=== PATIENT | female | born 1935 | race American Indian/Alaskan Native ===

== ENCOUNTER 2017-11-18 14:42 | Emergency (ER) | payer MEDICARE, OTHER ==
[2017-11-18 14:43] VITALS: BMI 27.6
[2017-11-18 15:11] VITALS: TEMP 98.7
[2017-11-18] MEDS ORDERED: Bacitracin 500 Units/gm Oint Foilpak UD TOP STA (15:45)
--- NOTE | 2017-11-18 15:51 | ED PDOC ---
Arrival/HPI - General Chief Complaint: Upper Extremity Problem/Injury Time Seen by Provider: 11/18/17 15:21 Historian: Patient - History of Present Illness Narrative History of Present Illness (Text): you were treated in the ED today for having an accidental fall with injury abrasion to the right wrist area with mild swelling and pain but otherwise without any head injury/neck pain/loss of consciousness/nausea/vomiting/headache /dizziness/difficulty breathing/chest pain/abdomen pain/numbness/tingling/loss of limb function/pain with urination. Time/Duration: Other (2 days ago) Symptom Course: Unchanged Quality: Aching Severity Level: 1 Activities at Onset: Rest Context: Walking Past Medical History - Provider Review Nursing Documentation Reviewed: Yes - Travel History Have you recently traveled outside [place] w/in the past 3 mons?: No - Infectious Disease Hx of Infectious Diseases: None - Cardiac Hx Pacemaker: No - Neurological Hx Paralysis: No - Hematological/Oncological Hx Blood Transfusions: No Hx Blood Transfusion Reaction: No - Musculoskeletal/Rheumatological Hx Musculoskeletal Disorders: No - Gastrointestinal Other/Comment: colonoscopy - Psychiatric Hx Emotional Abuse: No Hx Physical Abuse: No Hx Substance Use: No - Surgical History Hx Coronary Artery Bypass Graft: Yes (x3) Hx Coronary Stent: Yes - Anesthesia Hx Anesthesia: Yes Hx Anesthesia Reactions: Yes (NAUSEA) Hx Malignant Hyperthermia: No - Suicidal Assessment Feels Threatened In Home Enviroment: No Family/Social History - Physician Review Nursing Documentation Reviewed: Yes Family/Social History: No Known Family HX Smoking Status: Never Smoked Hx Alcohol Use: No Hx Substance Use: No Allergies/Home Meds Allergies/Adverse Reactions: Allergies shellfish derived Adverse Reaction (Verified 11/18/17 15:12) RASH Home Medications: Home Meds Medication Instructions Recorded Confirmed Ascorbic Acid [Vitamin C] 250 mg PO DAILY 07/15/14 11/18/17 Aspirin [Leader Aspirin] 81 mg PO DAILY 07/15/14 11/18/17 Ferrous Sulfate 325 mg PO DAILY 07/15/14 11/18/17 Metoprolol Succinate [Metoprolol 100 mg PO QAM 07/15/14 11/18/17 Succinate Xl] Quinapril Hydrochloride [Quinapril 40 mg PO BID 07/15/14 11/18/17 HCl] Simvastatin 40 mg PO HS 07/15/14 11/18/17 Review of Systems - Review of Systems Constitutional: Normal Eyes: Normal ENT: Normal Respiratory: Normal Cardiovascular: Normal Gastrointestinal: Normal Genitourinary Female: Normal Musculoskeletal: Joint Swelling Skin: Other (abrasion) Neurological: Normal Endocrine: Normal Hemo/Lymphatic: Normal Psychiatric: Normal Physical Exam Vital Signs Reviewed: Yes Vital Signs Temp Pulse Resp BP Pulse Ox 11/18/17 15:05 98.7 F 57 L 17 160/58 H 97 Temperature: Afebrile Blood Pressure: Hypertensive Pulse: Regular Respiratory Rate: Normal Appearance: Positive for: Well-Appearing, Non-Toxic, Comfortable Pain Distress: None Mental Status: Positive for: Alert and Oriented X 3 - Systems Exam Head: Present: Atraumatic, Normocephalic Pupils: Present: PERRL Extroacular Muscles: Present: EOMI Conjunctiva: Present: Normal Ears: Present: Normal Mouth: Present: Moist Mucous Membranes Pharnyx: Present: Normal Nose (External): Present: Atraumatic Nose (Internal): Present: Normal Inspection Neck: Present: Normal Range of Motion, Other ( no c-t-l spinal or paraspinal tenderness) Respiratory/Chest: Present: Clear to Auscultation, Good Air Exchange Cardiovascular: Present: Regular Rate and Rhythm Abdomen: No: Tenderness, Distention, Normal Bowel Sounds, Peritoneal Signs, Rebound, Guarding, McBurney's Point Tender, Rovsing's Sign Present, Hernias, Feeding Tubes, Ostomy Tubes, Mass/Organomegaly, Scars, Other Back: Present: Normal Inspection Upper Extremity: Present: Other (no muscle or bony tenderness any other location except for mild right wrist area discomfort in the extensor area of abrasion without fluctuance/crepitus/redness and otherwise good radial pulse/ sensation/cap refill without any snuffbox tenderness) Lower Extremity: Present: Normal Inspection Neurological: Present: GCS=15, CN II-XII Intact, Speech Normal, Motor Func Grossly Intact Skin: Present: Warm, Other (see msk upper) Psychiatric: Present: Alert, Oriented x 3, Normal Insight, Normal Concentration Medical Decision Making ED Course and Treatment: you were treated in the ED today for having an accidental fall with injury abrasion to the right wrist area with mild swelling and pain but otherwise without any head injury/neck pain/loss of consciousness/nausea/vomiting/headache /dizziness/difficulty breathing/chest pain/abdomen pain/numbness/tingling/loss of limb function/pain with urination. You were otherwise breathing easily, smiling and talking easily, good strength/sensation, walking easily, clear lungs , no abdomen tenderness, no spinal tenderness, no muscle or bony tenderness any other location except for mild right wrist area discomfort in the extensor area of abrasion without fluctuance/crepitus/redness and otherwise good radial pulse/ sensation/cap refill without any snuffbox tenderness, no fever temp 98.7, stable heart rate 57, stable breathing rate 17, excellent oxygen level 97% room air, elevated blood pressure 160/58 which we recommend repeat in 2-3 days primary care office to determine further treatment, radiology right wrist xray initial no acute findings, you stated your tetanus is upto date past 5 years, tylenol, keflex, bacitracin ointment, splint for support, observation done in the ED with improvement, counselled to be non-weight bearing right upper extremity till first clinic visit and thus discharged home. 1. Recommend tylenol as directed for pain. 2. Recommend bacitracin ointment to abrasion daily , keflex as directed for infection prevention. 3. Recommend follow-up primary care 1-2 days to review symptoms, get final xray report and orthopedics/hand surgery clinic as directed. 4. If any worsening pain, fever, chills, nausea, vomiting, difficulty breathing, numbness, loss of limb function, pain with urination or any medical condition then return to the ED. 11/18/17 16:59 Reassessment Condition: Re-examined, Improved - RAD Interpretation Radiology Orders: 11/18/17 15:53 WRIST, RIGHT 3 VIEWS [RAD] Stat - Medication Orders Current Medication Orders: Discontinued Medications Acetaminophen (Tylenol 325mg Tab) 975 mg PO STAT STA Stop: 11/18/17 15:46 Last Admin: 11/18/17 16:09 Dose: 975 mg MAR Pain/Vitals Document 11/18/17 16:09 EQ (Rec: 11/18/17 16:10 EQ [id number]) Pain Reassessment Is This A Pain ReAssessment? No Sleep Is patient sleeping during reassessment? No Presence of Pain Presence of Pain Yes Bacitracin (Bacitracin) 1 ea TOP STAT STA Stop: 11/18/17 15:46 Last Admin: 11/18/17 16:09 Dose: 1 ea Cephalexin Monohydrate (Keflex) 250 mg PO STAT STA PRN Reason: Protocol Stop: 11/18/17 15:46 Last Admin: 11/18/17 16:09 Dose: 250 mg Disposition/Present on Arrival - Present on Arrival Any Indicators Present on Arrival: No History of DVT/PE: No History of Uncontrolled Diabetes: No Urinary Catheter: No History of Decub. Ulcer: No History Surgical Site Infection Following: None - Disposition Have Diagnosis and Disposition been Completed?: Yes Diagnosis: Wrist injury Disposition: HOME/ ROUTINE Disposition Time: 16:59 Patient Plan: Discharge Condition: IMPROVED Discharge Instructions (ExitCare): Common Wrist Injuries (DC) Additional Instructions: ou were treated in the ED today for having an accidental fall with injury abrasion to the right wrist area with mild swelling and pain but otherwise without any head injury/neck pain/loss of consciousness/nausea/vomiting/headache /dizziness/difficulty breathing/chest pain/abdomen pain/numbness/tingling/loss of limb function/pain with urination. You were otherwise breathing easily, smiling and talking easily, good strength/sensation, walking easily, clear lungs , no abdomen tenderness, no spinal tenderness, no muscle or bony tenderness any other location except for mild right wrist area discomfort in the extensor area of abrasion without fluctuance/crepitus/redness and otherwise good radial pulse/ sensation/cap refill without any snuffbox tenderness, no fever temp 98.7, stable heart rate 57, stable breathing rate 17, excellent oxygen level 97% room air, elevated blood pressure 160/58 which we recommend repeat in 2-3 days primary care office to determine further treatment, radiology right wrist xray initial no acute findings, you stated your tetanus is upto date past 5 years, tylenol, keflex, bacitracin ointment, splint for support, observation done in the ED with improvement, counselled to be non-weight bearing right upper extremity till first clinic visit and thus discharged home. 1. Recommend tylenol as directed for pain. 2. Recommend bacitracin ointment to abrasion daily , keflex as directed for infection prevention. 3. Recommend follow-up primary care 1-2 days to review symptoms, get final xray report and orthopedics/hand surgery clinic as directed. 4. If any worsening pain, fever, chills, nausea, vomiting, difficulty breathing, numbness, loss of limb function, pain with urination or any medical condition then return to the ED. Prescriptions: Acetaminophen [Tylenol] 650 mg PO Q6 PRN 5 Days #30 capsule PRN Reason: Pain, Mild (1-3) Cephalexin [cephalexin] 250 mg PO Q6 3 Days #12 cap Forms: [employer] (E[place]an)
--- NOTE | 2017-11-18 17:09 | RAD ---
Date of service: 11/18/2017 PROCEDURE: Right Wrist Radiographs. HISTORY: 82yoF with right wrist pain/swelling COMPARISON: None. FINDINGS: BONES: Normal. No fracture. JOINTS: Normal. No dislocation. SOFT TISSUES: Normal. OTHER FINDINGS: None. IMPRESSION: Normal right wrist radiographs.
[2017-11-18 17:36] VITALS: BP 139/52; PULSE 59; RESP 18; O2SAT 98
== END 2017-11-18 17:30 | disposition home or self-care (01) ==
LOC: ED 14:42
DX: S69.91XA Unspecified injury of right wrist, hand and finger(s), initial encounter (principal); W19.XXXA Unspecified fall, initial encounter; Y92.9 Unspecified place or not applicable